=== PATIENT | female | born 1995 | race Caucasian/White ===

== ENCOUNTER 2021-01-07 22:27 | Emergency (ER) | payer BC ==
[~2021-01-07] VITALS: Ht 170.2 cm; Wt 100.0 kg
[~2021-01-07 22:27] MED LIST: LUTERA 0.02 MG-1 TAB PO
[2021-01-07 23:53] VITALS: TEMP 97.5
[2021-01-08] MEDS ORDERED: OXTELLAR600 PO (00:02)
[2021-01-08 00:25] LABS: COLLECTION METHOD CLEAN CATCH
[2021-01-08 00:31] LABS: MUCOUS Present /lpf; PH 6 (5-8); SQUAMOUS EPITHELIAL 0-2 /hpf; URINE APPEARANCE Clear; URINE BACTERIA Rare /hpf; URINE BILIRUBIN Negative (NEGATIVE); URINE BLOOD Negative (NEGATIVE); URINE COLOR Yellow; URINE GLUCOSE Negative (NEGATIVE); URINE KETONE Negative (NEGATIVE); URINE LEUKOCYTE ESTERASE Negative (NEGATIVE); URINE NITRATE Negative (NEGATIVE); URINE PROTEIN(semi-quant) Negative (NEGATIVE); URINE RBC 0-2 /hpf; URINE UROBILINOGEN Negative (NEGATIVE)
[2021-01-08] MEDS ORDERED: NAPROSYN500 MG PO (02:30)
[2021-01-08] MEDS ORDERED: FLEXERIL 1010 MG/TAB PO (02:30)
[2021-01-08 02:55] VITALS: BP 122/78; PULSE 61
== END 2021-01-08 02:55 | disposition home or self-care (01) ==
LOC: COL.ER 22:27
PROVIDERS: Nurse Practitioner Primary Care
DX: M62.830 Muscle spasm of back (principal); R12 Heartburn; G40.909 Epilepsy, unspecified, not intractable, without status epilepticus; Z79.899 Other long term (current) drug therapy
CPT/HCPCS: J1885; J3360

== ENCOUNTER → 2021-06-27 | Outpatient (CLI) | payer BC ==
[~2021-06-27] MED LIST changes: +FLEXERIL 1010 MG/TAB PO; +NAPROSYN500 MG PO; +OXTELLAR600 PO
== END ==
LOC: COL.RAD 13:38
DX: R20.0 Anesthesia of skin (principal)
CPT/HCPCS: A9585